=== PATIENT | male | born 1965 | race Hispanic/Latino ===

== ENCOUNTER 2021-11-21 07:27 | Observation (INO) | payer OTHER, MEDICARE ==
[~2021-11-21] VITALS: Ht 170.2 cm; Wt 68.0 kg
[~2021-11-21 07:27] MED LIST: ROSU20TA23 PO
[2021-11-21 09:41] VITALS: BP 156/74
[2021-11-21 12:08] LABS: BASOPHILS % (AUTO) 1.3 % (0.0-5.0); EOSINOPHILS % (AUTO) 1.9 % (0.0-8.0); HEMATOCRIT 37.1 % (42-54); MEAN CORPUSCULAR HEMOGLOBIN 34.5 pg (27.0-33.0); MEAN CORPUSCULAR HGB CONC 33.4 g/dL (32.0-36.0); MEAN CORPUSCULAR VOLUME 103.3 fL (79-99); MONOCYTES % (AUTO) 12.4 % (3.0-13.0); NEUTROPHILS % (AUTO) 65.2 % (40.0-77.0); PLATELET COUNT (AUTO) 220 K/uL (130-400); RED BLOOD CELL COUNT(AUTO) 3.59 MIL/uL (4.50-6.20); RED CELL DISTRIBUTION WIDTH 11.7 % (11.0-15.5); WHITE BLOOD COUNT (AUTO) 6.3 K/uL (4.8-10.8)
[2021-11-21 12:14] LABS: POTASSIUM 4.5 mmol/L (3.5-5.1)
[2021-11-22] MEDS ORDERED: THROMBIN-JMI 20000 UNIT KIT TP ONE (07:00)
[2021-11-22] MEDS ORDERED: BUPIVACAINE/PF 0.5% 30ML VIAL INJ ONE (07:00)
[2021-11-22] MEDS ORDERED: MORPHINE PF 100MG/10ML AMP IV ONE (07:00)
[2021-11-22] MEDS ORDERED: CEFAZOLIN SODIUM 1 GM VIAL IVP ONE (07:00)
[2021-11-22] MEDS ORDERED: BUPIVACAINE/EPI/PF 0.25% 10ML VIAL IJ ONE (07:00)
[2021-11-23] MEDS ORDERED: LISI10TA24 PO (09:54)
[2021-11-23] MEDS ORDERED: CLON2TAB11 PO (09:54)
[2021-11-24] VITALS (24 sets, daily range): BP systolic 127–160; BP diastolic 68–91
[2021-11-24] MEDS: CEFAZOLIN SODIUM 1 GM VIAL IVP SCH ×2 (05:00→16:58)
[2021-11-24] MEDS ORDERED: BUPIVACAINE/EPI/PF 0.5% 30ML VIAL IJ ONE (05:04)
[2021-11-24] MEDS ORDERED: CEFAZOLIN SODIUM 1 GM VIAL ONE (05:04)
[2021-11-24] MEDS ORDERED: MORPHINE PF 100MG/10ML AMP IV ONE (05:04)
[2021-11-24] MEDS ORDERED: THROMBIN-JMI 20000 UNIT KIT TP ONE (05:05)
[2021-11-24] MEDS ORDERED: KETAMINE 50MG/ML SYRINGE 50 MG/ML DISP.SYRIN IV ONE (05:24)
[2021-11-24] MEDS ORDERED: MAGNESIUM SULFATE 1 GM/2 ML VIAL ONE (05:24)
[2021-11-24] MEDS ORDERED: DEXMEDETOMIDINE HCL 200 MCG/2 ML VIAL IV ONE (05:24)
[2021-11-24] MEDS ORDERED: LACTATED RINGERS 1000ML 1,000 ML IV ONE (06:15)
[2021-11-24] MEDS ORDERED: MIDAZOLAM HCL 1 MG/ML 2ML VIAL ONE (07:17)
[2021-11-24] MEDS ORDERED: PROPOFOL 10 MG/ML 20ML VIAL IV ONE ×2 (07:17→07:27)
[2021-11-24] MEDS ORDERED: FENTANYL CITRATE PF 50 MCG/1 ML 5ML AMP IV ONE (07:17)
[2021-11-24] MEDS ORDERED: ROCURONIUM 10MG/1ML SYR 10 MG/ML ML ONE ×2 (07:26→08:12)
[2021-11-24] MEDS ORDERED: ONDANSETRON 4MG INJ ONE ×2 (07:28→10:31)
[2021-11-24] MEDS ORDERED: ARTIFICIAL TEARS 3.5 GM OINTMENT ONE (08:25)
[2021-11-24] MEDS ORDERED: EPHEDRINE SULFATE 50 MG/ML AMPULE ONE (08:35)
[2021-11-24] MEDS ORDERED: NEOSTIGMINE 5MG/5ML SYR IV ONE (10:06)
[2021-11-24] MEDS ORDERED: GLYCOPYRROLATE 1 MG/5 ML SYRINGE ONE (10:06)
[2021-11-24] MEDS: LACTATED RINGERS 1000ML 1,000 ML IV SCH ×2 (10:30→23:00)
[2021-11-24] MEDS ORDERED: PROMETHAZINE HCL 25 MG/ML 1ML AMPULE IM PRN (10:30)
[2021-11-24] MEDS ORDERED: MORPHINE 2 MG SYG IVP PRN (10:30)
[2021-11-24] MEDS: CEFAZOLIN SODIUM 2 GM VIAL IVP SCH ×2 (10:30→17:04)
[2021-11-24] MEDS: DEXAMETHASONE SOD PHOSPHATE 4 MG/ML 1ML VIAL IVP SCH ×3 (10:30→21:34)
[2021-11-24] MEDS ORDERED: 0.9%NACL 10ML VIAL IVP PRN (10:30)
[2021-11-24] MEDS ORDERED: MEPERIDINE-PF 25 MG/ML SYG ONE (10:31)
[2021-11-24] MEDS ORDERED: FENTANYL CITRATE PF 50 MCG/1 ML 2ML VIAL ONE (10:43)
[2021-11-24] MEDS ORDERED: KETOROLAC 30MG VIAL (30MG/ML) ONE (11:17)
[2021-11-24] MEDS: CLONAZEPAM 2 MG TABLET PO SCH ×2 (12:09→19:38)
[2021-11-24] MEDS: HYDROCODONE/ACETAMINOPHEN 5/325 MG TAB PO PRN (12:13)
[2021-11-24] MEDS ORDERED: BENZOCAINE/MENTH/CETYLPYRD CL 1 EACH LOZENGE MM PRN (17:30)
[2021-11-24] MEDS ORDERED: ATORVASTATIN 40 MG TABLET PO SCH (21:00)
[2021-11-25] VITALS: BP 140/79
[2021-11-25] MEDS: CEFAZOLIN SODIUM 2 GM VIAL IVP SCH (00:38)
[2021-11-25 03:30] VITALS: BP 169/99
[2021-11-25] MEDS: DEXAMETHASONE SOD PHOSPHATE 4 MG/ML 1ML VIAL IVP SCH (03:55)
[2021-11-25] MEDS: HYDROCODONE/ACETAMINOPHEN 5/325 MG TAB PO PRN (03:55)
[2021-11-25 09:00] VITALS: BP 157/84
[2021-11-25] MEDS: CLONAZEPAM 2 MG TABLET PO SCH (09:00)
[2021-11-25] MEDS ORDERED: LISINOPRIL 10 MG TABLET PO SCH (09:00)
== END 2021-11-25 10:30 | disposition home or self-care (01) ==
LOC: DAHIP 11-24 05:44 → 4BH 11-24 11:52
PROVIDERS: ADMIT Neurological Surgery; ATTEND Neurological Surgery
DX: M48.062 Spinal stenosis, lumbar region with neurogenic claudication (principal); Z20.822 Contact with and (suspected) exposure to COVID-19; M54.16 Radiculopathy, lumbar region; M48.07 Spinal stenosis, lumbosacral region; M67.40 Ganglion, unspecified site; Z79.899 Other long term (current) drug therapy; Z98.890 Other specified postprocedural states; Z87.19 Personal history of other diseases of the digestive system
CPT/HCPCS: 80051; 85025; 87426; 36415; 71045; 93005; 63047; 63048; 96374; 96376 ×2; 96375; 72020; J0690 ×4; J2274 ×2; J3490 ×7; J1100 ×3; G0378 ×23; G0379; A4663; J7120 ×2; A4344; J3010 ×2; J2710; J3475; J2250; J2704 ×2; J2405 ×2; J1885; J2175; A4649 ×2; A4215; A4223; A4222; A4221; A4600

== ENCOUNTER → 2022-04-17 | Outpatient (CLI) | payer OTHER, MEDICARE ==
[~2022-04-17] MED LIST changes: +CLON2TAB11 PO; +LISI10TA24 PO
[2022-04-17 14:58] LABS: CREATININE 0.9 mg/dL (0.5-1.5)
== END | disposition home or self-care (01) ==
LOC: LAB 14:26
PROVIDERS: ATTEND Neurological Surgery
DX: M54.16 Radiculopathy, lumbar region (principal)
CPT/HCPCS: 36415; 82565; 84520

== ENCOUNTER → 2022-04-27 | Outpatient (CLI) | payer OTHER, MEDICARE ==
[~2022-04-27] MED LIST changes: +GADOTERATE MEGLUMINE 10 MMOL/20 ML VIAL IV ONE
== END | disposition home or self-care (01) ==
LOC: RAH 14:08
PROVIDERS: ATTEND Neurological Surgery
DX: M48.061 Spinal stenosis, lumbar region without neurogenic claudication (principal); M51.16 Intervertebral disc disorders with radiculopathy, lumbar region
CPT/HCPCS: 72158; A9575

== ENCOUNTER 2024-05-04 22:14 | Emergency (ER) | payer OTHER, MEDICARE ==
[~2024-05-04] VITALS: Ht 170.2 cm; Wt 68.0 kg
[~2024-05-04 22:14] MED LIST changes: -GADOTERATE MEGLUMINE 10 MMOL/20 ML VIAL IV ONE
--- NOTE | 2024-05-04 22:41 | ERN ---
ED Note History of Present Illness Stated Complaint: LOWER BACK PAIN, LLE PAIN S/P FALL ON SUNDAY Chief Complaint: Back Pain or Injury Time Seen by MD: 22:29 Dictation: PATIENT IS A 58-YEAR-OLD MALE COMING IN VIA EMS WITH COMPLAINTS OF LOW BACK PAIN WITH LEFT LEG SCIATICA AND RADICULOPATHY ONSET SUNDAY. HE STATES HE WAS HELPING HIS PARENTS MOUTH THERE FLOOR THAT HE HAD BEEN RANGE OUT IN THE STORM, AND SLIPPED AND FELL. STATES HE WOULD NOT GO TO THE HOSPITAL SUNDAY OR SUNDAY. HAS BEEN TAKING TRAMADOL FROM HIS DOCTOR FOR PAIN. STATES HE HAS A HISTORY OF PRIOR LUMBAR SURGERY AT L[address] GARRIDO AT [facility] 5-6 YEARS AGO. NO CHANGE IN BOWEL OR BLADDER FUNCTION. POSITIVE STRAIGHT LEG RAISE LEFT A 10 Allergies: Coded Allergies: No Known Drug Allergies (Unverified Allergy, Unknown, 05/21/14) Home Meds Active Scripts Omeprazole (Omeprazole) 40 Mg Capsule.dr, 1 CAP PO DAILY for 30 Days, #30 CAP 0 Refills Prov:MARY PICKERING NP 05/04/24 Prednisone (Prednisone) 20 Mg Tablet, 1 TAB PO AD for 6 Days, #14 TAB 0 Refills TAKE 1 TAB BY MOUTH THREE TIMES PER DAY X3 DAYS, THEN TAKE 1 TAB BY MOUTH TWICE A DAY X2 DAYS, THEN TAKE 1 TAB BY MOUTH ONCE A DAY X1 DAY. Prov:MARY PICKERING NP 05/04/24 Cyclobenzaprine HCl (Cyclobenzaprine HCl) 10 Mg Tablet, 1 TAB PO TID for muscle spasms for 10 Days, #30 TAB 0 Refills Prov:MARY PICKERING NP 05/04/24 Ibuprofen (Ibuprofen 800 mg Tab) 800 Mg Tab, 800 MG PO Q8H PRN for fever or pain, #30 TAB 0 Refills Prov:MARY PICKERING NP 05/04/24 Reported Medications Clonazepam (Clonazepam) 2 Mg Tablet, 2 MG PO TID, TAB 11/23/21 Lisinopril (Lisinopril) 10 Mg Tablet, 10 MG PO DAILY, TAB 11/23/21 Rosuvastatin Calcium (Crestor) 20 Mg Tablet, 20 MG PO DAILY, TAB 05/17/16 Past Medical History Past Medical History: High Cholesterol, Hypertension Surgical History: Other Surgical History Other: R ROTATOR CUFF REPAIR,BACK SX RN Note Reviewed/Agreed w/PFSH: Yes Review of System Dictation CONSTITUTIONAL: NEGATIVE EXCEPT FOR HPI HEAD/FACE: NEGATIVE EXCEPT FOR HPI EENT: NEGATIVE EXCEPT FOR HPI RESPIRATORY: NEGATIVE EXCEPT FOR HPI GASTROINTESTINAL/ABDOMINAL: NEGATIVE EXCEPT FOR HPI GENITOURINARY: NEGATIVE EXCEPT FOR HPI MUSCULOSKELETAL: NEGATIVE EXCEPT FOR HPI LOW BACK PAIN WITH LEFT LEG SCIATICA INTEGUMENTARY: NEGATIVE EXCEPT FOR HPI NEUROLOGICAL/PSYCH: NEGATIVE EXCEPT FOR HPI HEMATOLOGIC/LYMPHATIC: NEGATIVE EXCEPT FOR HPI ALL SYSTEMS NEGATIVE, EXCEPT NOTED ABOVE. 13 POINT REVIEW OF SYSTEMS ASSESSED AND ALL NEGATIVE EXCEPT FOR ABOVE. Initial Vital Sign VS Vital Signs Date Time Temp Pulse Resp B/P (MAP) Pulse Ox O2 Delivery O2 Flow Rate FiO2 05/04/24 22:18 100.6 100 16 147/89 97 Room Air 0 Physical Exam Dictation VITAL SIGNS REVIEWED GENERAL APPEARANCE: ALERT, ORIENTED X 3, MODERATE ACUTE DISTRESS, WELL DEVELOPED, NOURISHED. HEAD AND FACE: NON-TRAUMATIC. EYES: PERRL, PINK CONJUNCTIVAS, EYELID NO TRAUMA, ANTERIOR CHAMBER WITH ARCUS SENILIS. EARS: PINNAS INTACT AND NO SIGNS OF TRAUMA OR ERYTHEMA EAR CANALS CLEAR AND NO DISCHARGE TM NO ERYTHEMA NOSE: NO DISCHARGE, NO BLEEDING. OROPHARYNX: MOUTH NORMAL, TONGUE PINK, PHARYNX CLEAR,NO ERYTHEMA, TONSILS NO EXUDATES, NO ABSCESSES NOTED, MUCOUS MEMBRANE MOIST NECK: SUPPLE, NON-TENDER, NO THYROMEGALY, NO MASSES, NO JVD, NO BRUITS BREAST:DEFERRED CHEST:NO TENDERNESS, NO CREPITUS, NO PARADOXICAL MOVEMENT, NO RETRACTIONS LUNGS:CLEAR, WELL-VENTILATED, SYMMETRIC, NO RALES, NO WHEEZING, NO RHONCHI, NO STRIDOR, GOOD BREATH SOUNDS BILATERALLY HEART: REGULAR RATE, REGULAR RHYTHM, NO MURMUR, NO GALLOPS VASCULAR: NO PERIPHERAL EDEMA, ABDOMEN: SOFT, POSITIVE BOWEL SOUNDS, NONDISTENDED, NO GUARDING, NONTENDER, NO REBOUND, NO MASSES NO HEPATOMEGALY, NO SPLENOMEGALY, NO BUCKLEY'S SIGN, NO HERNIAS. RECTAL: DEFERRED GENITAL: DEFERRED NEUROLOGICAL: NORMAL SPEECH, MOTOR FUNCTION INTACT, SENSORY FUNCTION INTACT MUSCULOSKELETAL: NECK NONTENDER, FULL RANGE OF MOTION DIFFUSE LUMBOSACRAL TENDERNESS GREATER ON THE LEFT., FULL RANGE OF MOTION, POSITIVE STRAIGHT LEG RAISE LEFT 10 DEGREE EXTREMITIES: NONTENDER, FULL RANGE OF MOTION SKIN: COLOR PINK, DRY, NO TURGOR, NO RASH, NO LACERATIONS, NO ABRASIONS, NO CONTUSIONS. LYMPHATIC: DEFERRED Results (Laboratory/Radiology) Laboratory/Radiology LUMBAR SPINE 2-3VWS HISTORY: Back pain COMPARISON: None FINDINGS: 3 images of lumbar spine were obtained. There are degenerative changes with lumbar spine spondylosis. There is straightening of normal lordotic curvature which may be related to muscle spasm or positioning. No loss of vertebral height is seen. No fracture or dislocation is seen. Degenerative changes are seen. IMPRESSION: 1. No fracture is seen. Labs Reviewed?: Yes ED Course ED Course Orders Procedure Category Date Status Time Hydrocodone/Apap PHA 05/04/24 Complete 5/325 ([place] 5/325mg) 23:00 Dexamethasone 4mg/Ml PHA 05/04/24 Complete 1ml Vial (Dexametha 23:00 Cyclobenzaprine Hcl PHA 05/04/24 Complete (Cyclobenzaprine Hcl 23:00 Ketorolac 60mg/2ml PHA 05/04/24 Complete (Toradol 60mg/2ml) 23:00 Lumbar Spine 2-3vws RAD 05/04/24 Resulted 22:32 Current Medications Medications (Trade) Dose Ordered Sig/Shakeel Route PRN Reason Start Time Stop Time Status Last Admin Dose Admin Acetaminophen/ Hydrocodone Bitart (NORco 5/325MG) 1 tab ONCE ONCE PO 05/04/24 23:00 05/04/24 23:01 DC 05/04/24 22:54 Cyclobenzaprine HCl (Cyclobenzaprine HCl) 10 mg ONCE ONCE PO 05/04/24 23:00 05/04/24 23:01 DC 05/04/24 22:55 Dexamethasone Sodium Phosphate (dexaMETHasone 4MG/ML 1ML VIAL) 8 mg ONCE ONCE IM 05/04/24 23:00 05/04/24 23:01 DC 05/04/24 22:54 Ketorolac Tromethamine (toRADol 60MG/ 2ML) 60 mg ONCE ONCE IM 05/04/24 23:00 05/04/24 23:01 DC 05/04/24 22:54 Vital Signs Date Time Temp Pulse Resp B/P (MAP) Pulse Ox O2 Delivery O2 Flow Rate FiO2 05/04/24 22:18 100.6 100 16 147/89 97 Room Air 0 2330/PATIENT STATES PAIN IS IMPROVING AFTER TREATMENT. HE IS AWARE HE NEEDS TO FOLLOW UP WITH HIS PRIMARY CARE DOCTOR IN THE NEXT 1-2 DAYS FOR RECOMMENDED MRI. NO CHANGE IN SCIATICA Medical Decision Making MDM MEDICAL DECISION-MAKING BASED ON LUMBAR FILM AND EMPIRIC TREATMENT FOR LUMBAR PAIN. PAIN IS BEING REDUCED AFTER TREATMENT. PATIENT DISCHARGED HOME WITH IBUPROFEN/CYCLOBENZAPRINE/PREDNISONE PATIENT TOLD NO LIFTING GREATER THAN 10 LB UNTIL CLEARED BY HIS DOCTOR AND RECOMMEND AN MRI Critical Care Note Comment(s) 0002/PATIENT HAS AND ARRIVED AT THE BEDSIDE AND WAS COMPLAINING THAT I HAD NOT EXPLAINED TO PATIENT WHAT IT TRANSPIRED INCLUDING WHAT MEDICATIONS HAD A GIVEN. I EXPLAINED TO HER THAT I HAD GIVEN HIM FOR DIFFERENT MEDICATIONS AND I WOULD NOT BE PER FIVE ANY ANYMORE ANALGESIA AT THIS TIME. IN ADDITION I SAID HE HAS GOT ACUTE EXACERBATION OF CHRONIC LOW BACK PAIN WITH SCIATICA AND WE WILL NEED AN MRI SHE DEMANDED THAT I DO THAT HERE IN THE EMERGENCY ROOM AND I TOLD HER THAT I WOULD NOT BE PERFORMING BECAUSE I WAS NOT AVAILABLE AT THIS TIME. THIS WAS ON NONEMERGENT CONDITION I WOULD NOT BE PROVIDING ANYMORE MEDICATIONS AT THIS TIME. PATIENT IS A 58-YEAR-OLD MALE ALERT AND ORIENTED X4 SPEECH IS CLEAR NEUROLOGICALLY INTACT. THE AUNT WAS VERY DEMANDING AND SAID THAT SHE KNOWS THAT MRIS CAN BE PERFORMED IN THE EMERGENCY ROOM AND I EXPLAINED TO HER THAT THEY CAN NOT BE DONE FOR NONEMERGENT CONDITIONS , PATIENT'S CONDITION WAS NONEMERGENT. PATIENT NOTED TO BE WALKING AROUND HIS BEDSIDE. HAD WALKED TO THE BATHROOM. DX & DISP Disposition: Discharge Departure Impression: Primary Impression: Acute exacerbation of chronic low back pain Additional Impressions: Chronic left-sided low back pain with sciatica, Fall Condition: Stable Scripts Omeprazole (Omeprazole) 40 Mg Capsule.dr 1 CAP PO DAILY for 30 Days, #30 CAP 0 Refills Prov: MARY PICKERING NP 05/04/24 Prednisone (Prednisone) 20 Mg Tablet 1 TAB PO AD for 6 Days, #14 TAB 0 Refills TAKE 1 TAB BY MOUTH THREE TIMES PER DAY X3 DAYS, THEN TAKE 1 TAB BY MOUTH TWICE A DAY X2 DAYS, THEN TAKE 1 TAB BY MOUTH ONCE A DAY X1 DAY. Prov: MARY PICKERING NP 05/04/24 Cyclobenzaprine HCl (Cyclobenzaprine HCl) 10 Mg Tablet 1 TAB PO TID for muscle spasms for 10 Days, #30 TAB 0 Refills Prov: MARY PICKERING NP 05/04/24 Ibuprofen (Ibuprofen 800 mg Tab) 800 Mg Tab 800 MG PO Q8H PRN for fever or pain, #30 TAB 0 Refills Prov: MARY PICKERING NP 05/04/24 Additional Instructions: FOLLOW-UP WITH PRIMARY CARE PROVIDER IN 1 TO 2 DAYS. TAKE MEDICATIONS DIRECTED HERE IN THE EMERGENCY ROOM. OKAY TO CONTINUE HOME MEDICATIONS UNLESS OTHERWISE DISCUSSED DURING YOUR VISIT IN THE EMERGENCY ROOM TODAY. RETURN TO YOUR NEAREST EMERGENCY ROOM IF SYMPTOMS WORSEN OR IF THERE IS NO IMPROVEMENT. CALL 911 IF YOU NEED IMMEDIATE ASSISTANCE. TAKE TYLENOL OR MOTRIN [id number] NEEDED AND IF NO CONTRAINDICATIONS ARE PRESENT. INCREASE ORAL HYDRATION. A WOUND CULTURE OR URINE CULTURE WAS ORDERED HERE IN THE EMERGE [facility] ROOM DEPARTMENT PLEASE FOLLOW-UP WITH PRIMARY CARE PROVIDER AND ADVISE THEM TO GET REPEAT PORTS FROM OUR FACILITY. IF YOU HAD ANY MIKAL WRAP/SPLINTS THAT WERE APPLIED HERE, PLEASE DO NOT REMOVE THEM UNTIL YOU SEE YOUR PRIMARY CARE OR SPECIALTY. TAKE IBUPROFEN AND FLEXERIL EVERY 8 HOURS WITH FOOD FOR THE NEXT THREE DAYS. TAKE OMEPRAZOLE DAILY DIRECTED TO PROTECT YOUR STOMACH. TAKE PREDNISONE DIRECTED WITH FOOD UNTIL GONE. NO LIFTING GREATER THAN 10 LB AND SEE YOUR PRIMARY CARE DOCTOR FOR RECOMMENDED MRI Referrals: RUBIN BURGOS DO (PCP) Time of Disposition: 23:33 I have reviewed the case, and I agree with, Diagnosis and Plan MARY PICKERING NP May 04, 2024 22:41
[2024-05-04] MEDS: HYDROcodone/APAP 5/325 1 TAB TABLET PO ONE (22:54)
[2024-05-04] MEDS: dexaMETHasone SOD PHOSPHATE 4 MG/ML 1ML VIAL IM ONE (22:54)
[2024-05-04] MEDS: ketOROlac 60 MG VIAL (30MG/ML) IM ONE (22:54)
[2024-05-04] MEDS: CYCLOBENZAPRINE HCL 10 MG TABLET PO ONE (22:55)
--- NOTE | 2024-05-04 23:18 | HMCIMG ---
LUMBAR SPINE 2-3VWS HISTORY: Back pain COMPARISON: None FINDINGS: 3 images of lumbar spine were obtained. There are degenerative changes with lumbar spine spondylosis. There is straightening of normal lordotic curvature which may be related to muscle spasm or positioning. No loss of vertebral height is seen. No fracture or dislocation is seen. Degenerative changes are seen. IMPRESSION: 1. No fracture is seen.
[2024-05-04] MEDS ORDERED: CYCL-309 PO (23:34)
[2024-05-04] MEDS ORDERED: PRED20TA3 PO (23:34)
[2024-05-04] MEDS ORDERED: IBUP-2077 PO (23:34)
[2024-05-04] MEDS ORDERED: OMEP40CA21 PO (23:34)
[2024-05-05 00:03] VITALS: BP 145/86; PULSE 87; RESP 16; TEMP 99; O2SAT 97
== END 2024-05-05 00:04 | disposition home or self-care (01) ==
LOC: EDH 22:14
DX: G89.29 Other chronic pain (principal); M54.50 Low back pain, unspecified; E78.00 Pure hypercholesterolemia, unspecified; I10 Essential (primary) hypertension; Z79.899 Other long term (current) drug therapy
CPT/HCPCS: 99284; 72100; 96372 ×2; J1100; J1885